=== PATIENT | female | born 1980 | race Caucasian/White ===

== ENCOUNTER 2016-05-15 11:26 | Day surgery (SDC) | payer OTHER ==
[~2016-05-15] VITALS: Ht 154.9 cm; Wt 49.3 kg
[~2016-05-15 11:26] MED LIST: BEN25 PO; CALAMINE TOP; DAPT500V5 IVPB; FLUC100T PO; HYDR-906 PO; IBUP-1542 PO; LACT1CAP56 PO; LANT3I SC; LEVO500T72 PO; MIDO5TAB19 PO; NITR-58 PO; NOVO3I SC; PANT40TA3 PO; SUCR1TAB27 PO; Senna PO; TOPI25TA38 PO; TRAM50TA2 PO
[2016-05-15 12:40] VITALS: Ht 154.9 cm; Wt 49.3 kg
[2016-05-15] MEDS ORDERED: INSULIN (12:49)
[2016-05-15] MEDS ORDERED: OMEPRAZOLE (12:49)
[2016-05-15 13:23] VITALS: BP 127/83; PULSE 103; RESP 18
[2016-05-15] MEDS ORDERED: MIDAZOLAM 1 MG/ML 2 ML INJ ONE ×2 (13:40)
[2016-05-15] MEDS ORDERED: FENTAnyl 50 MCG/ML VIAL ONE (13:41)
[2016-05-15 13:45] VITALS: BP 101/75; PULSE 86
--- NOTE | 2016-05-15 14:14 | GILP ---
DATE OF PROCEDURE: 05/15/2016 NAME OF PROCEDURES: Esophagogastroduodenoscopy and biopsy. SURGEON: Alyssa Navarrete MD PREOPERATIVE DIAGNOSES: 1. Abdominal pain. 2. Chronic heartburn. POSTOPERATIVE DIAGNOSES: 1. Gastroesophageal reflux disease. 2. Gastritis with erosions. 3. Superficial ulcerations in the prepyloric area. 4. Gastric mucosal biopsies were taken for H. pylori test. 5. Duodenum was normal. INDICATION FOR THE PROCEDURE: Ms. Radha Sloan is a 35-year-old female patient who had upper abdo handy pain and chronic heartburn, not responding to therapy. The patient was scheduled for endoscop ic examination for further evaluation. The procedure and possible complications were well explained to the patient. The patient understood and consented to the procedure. DESCRIPTION OF PROCEDURE: Under the influence of fentanyl and Versed, the gastroscope was carefully introduced into the esophagus, and under direct vision, it was advanced to the stomach and through the pylorus into the duodenal bulb and descending duodenum. FINDINGS: ESOPHAGUS: The patient had gastroesophageal reflux disease. STOMACH: She had gastritis with erosions. She also had superficial ulceration in the prepyloric ar ea. Gastric mucosal biopsies were taken for H. pylori test. DUODENUM: Normal. The patient tolerated the procedure very well, and there was no complication from the procedure. At the end of the procedure, she was awake with stable vital signs and she was discharged home to the care of her family. IMPRESSION: Please see postoperative diagnosis. PLAN: 1. Continue omeprazole. 2. Add Zantac 300 mg p.o. at bedtime. 3. Await H. pylori test report. Dictated By: ALYSSA BELLA/DIANA Conf#: [id number] DID#: [id number] CC: IONA RENNER MD;*EndCC*
[2016-05-15 14:15] VITALS: BP 105/76
== END 2016-05-15 15:27 | disposition home or self-care (01) ==
LOC: GIL 11:26
PROVIDERS: ATTEND Internal Medicine Gastroenterology
DX: K29.60 Other gastritis without bleeding (principal); B96.81 Helicobacter pylori [H. pylori] as the cause of diseases classified elsewhere; K21.9 Gastro-esophageal reflux disease without esophagitis; E11.9 Type 2 diabetes mellitus without complications; N18.9 Chronic kidney disease, unspecified
CPT/HCPCS: 43239; 82962; 84703; 87081; J2250; J3010; Z7610

== ENCOUNTER 2016-06-18 21:44 | Emergency (ER) | payer OTHER ==
[~2016-06-18] VITALS: Ht 162.6 cm; Wt 51.5 kg
[~2016-06-18 21:44] MED LIST changes: -BEN25 PO; -CALAMINE TOP; -DAPT500V5 IVPB; -FLUC100T PO; -HYDR-906 PO; -IBUP-1542 PO; +INSULIN; -LACT1CAP56 PO; -LANT3I SC; -LEVO500T72 PO; -MIDO5TAB19 PO; -NITR-58 PO; -NOVO3I SC; +OMEPRAZOLE; -PANT40TA3 PO; -SUCR1TAB27 PO; -Senna PO; -TOPI25TA38 PO; -TRAM50TA2 PO
[2016-06-18 21:47] VITALS: Ht 162.6 cm; Wt 51.5 kg
[2016-06-18] MEDS ORDERED: SOD CHLORIDE 0.9% 500 ML IV STA (22:05)
[2016-06-18] MEDS ORDERED: morphine 4 MG/ML VIAL IV STA (22:05)
--- NOTE | 2016-06-18 22:09 | ERD ---
ER Documentation Chief Complaint Date/Time DATE: 06/18/16 TIME: 22:07 Chief Complaint LLQ abd pain x 6 months, painful urination HPI 35 year female presents to emergency department for complaints of left lower quadrant abdominal pain for 6 months worse today, describes the pain as sharp pain, 6/10 scale, is accompanied with dysuria. Patient already has been referred to a urologist specialist for further evaluation, patient has history of CKD, also has been referred to renal specialist. Patient is diabetic. Patient denies any fever or chills. Patient describes left lower quadrant abdominal pain as sharp pain, 6/10 scale, accompanied with occasional constipation. Patient denies any nausea or vomiting. Patient denies any fever or chills. ROS All systems reviewed and are negative except as per history of present illness. Medications Home Meds Active Scripts Ondansetron (Ondansetron Odt) 4 Mg Tab.rapdis, 4 MG PO Q8 Y for NAUSEA AND/OR VOMITING, #30 TAB Prov:SAPNA PANCHAL NP 06/18/16 Hydrocodone/Acetaminophen ([place] 5-325 Tablet) 1 Each Tablet, 1 TAB PO Q6H Y for SEVERE PAIN LEVEL 7-10, #20 TAB Prov:SAPNA PANCHAL NP 06/18/16 Phenazopyridine Hcl* (Pyridium*) 200 Mg Tab, 200 MG PO TID Y for URINARY PAIN, # 6 TAB Prov:SAPNA PANCHAL NP 06/18/16 Ciprofloxacin Hcl* (Ciprofloxacin Hcl*) 500 Mg Tablet, 500 MG PO BID for 10 Days , TAB Prov:SAPNA PANCHAL NP 06/18/16 Reported Medications [Omeprazole] No Conflict Check 05/15/16 [Insulin] No Conflict Check 05/15/16 Allergies Allergies: Coded Allergies: amoxicillin (Verified Allergy, Severe, THROAT SWELLING, HIVES, 09/10/15) latex (Verified Allergy, Severe, HIVES, 09/10/15) monosodium glutamate (Verified Allergy, Severe, THROAT SWELLING, HIVES, ) Uncoded Allergies: MSG (Allergy, Unknown, THROAT SWELLING, HIVES, 05/31/14) PMhx/Soc History of Surgery: Yes (TIBIA SURGERY) Anesthesia Reaction: No Hx Neurological Disorder: No Hx Respiratory Disorders: No Hx Cardiac Disorders: No Hx Psychiatric Problems: Yes (ANXIETY/DEPRESSION) Hx Miscellaneous Medical Probl: No Hx Alcohol Use: No Hx Substance Use: No Hx Tobacco Use: Yes (1/2 PACK PER DAY) Smoking Status: Unknown if ever smoked FmHx Family History: No coronary disease, No diabetes, No other Physical Exam Vitals Vital Signs Date Time Temp Pulse Resp B/P Pulse Ox O2 Delivery O2 Flow Rate FiO2 06/19/16 01:00 98.3 97 17 123/82 99 Room Air 06/18/16 21:47 98.3 105 20 141/84 98 Physical Exam GENERAL: The patient is well developed and appropriate for usual state of health, in no apparent distress. CHEST: Clear to auscultation bilaterally. There are no rales, wheezes or rhonchi. HEART: Regular rate and rhythm. No murmurs, clicks, rubs or gallops. No S3 or S4. ABDOMEN: Soft, nontender and nondistended. Good bowel sounds. No rebound or guarding. No gross peritonitis. No gross organomegaly or masses. No Medina sign or McBurney point tenderness. BACK: No midline or flank tenderness. EXTREMITIES: Equal pulses bilaterally. There is no peripheral clubbing, cyanosis or edema. No focal swelling or erythema. Full range of motion. Grossly neurovascularly intact. NEURO: Alert and oriented. Cranial nerves 2-12 intact. Motor strength in all 4 extremities with 5/5 strength. Sensation grossly intact. Normal speech and gait. SKIN: There is no apparent rash or petechia. The skin is warm and dry. HEMATOLOGIC AND LYMPHATIC: There is no evidence of excessive bruising or lymphedema. No gross cervical, axillary, or inguinal lymphadenopathy. Result Diagram: 06/18/16221906/18/162219 Results 24 hrs Laboratory Tests Test 06/18/16 22:20 White Blood Count 11.610^3/ul Red Blood Count 4.2810^6/ul Hemoglobin 11.8g/dl Hematocrit 37.0% Mean Corpuscular Volume 86.4fl Mean Corpuscular Hemoglobin 27.6pg Mean Corpuscular Hemoglobin Concent 31.9g/dl Red Cell Distribution Width 13.1% Platelet Count 37164^3/UL Mean Platelet Volume 10.6fl Neutrophils % 55.8% Lymphocytes % 37.0% Monocytes % 4.7% Eosinophils % 2.0% Basophils % 0.3% Nucleated Red Blood Cells % 0.0/100WBC Neutrophils # 6.510^3/ul Lymphocytes # 4.310^3/ul Monocytes # 0.510^3/ul Eosinophils # 0.210^3/ul Basophils # 0.010^3/ul Nucleated Red Blood Cells # 0.010^3/ul Urine Color LT. YELLOW Urine Clarity CLEAR Urine pH 6.0 Urine Specific [place] 1.015 Urine Ketones NEGATIVE Urine Nitrite NEGATIVE Urine Bilirubin NEGATIVE Urine Urobilinogen 0.2 E.U./dL Urine Leukocyte Esterase NEGATIVE Urine Microscopic RBC 5-10/HPF Urine Microscopic WBC 5-10/HPF Urine Squamous Epithelial Cells FEW Urine Bacteria MANY Urine Hemoglobin 2+ Urine Glucose NEGATIVE% Urine Total Protein 2+ Sodium Level 140mmol/L Potassium Level 4.6mmol/L Chloride Level 102mmol/L Carbon Dioxide Level 27mmol/L Anion Gap 16 Blood Urea Nitrogen 17mg/dl Creatinine 1.07mg/dl Glucose Level 176mg/dl Calcium Level 8.8mg/dl Total Bilirubin 0.2mg/dl Direct Bilirubin 0.00mg/dl Indirect Bilirubin 0.2mg/dl Aspartate Amino Transf (AST/SGOT) 25IU/L Alanine Aminotransferase (ALT/SGPT) 30IU/L Alkaline Phosphatase 97IU/L Total Protein 7.4g/dl Albumin 3.7g/dl Globulin 3.70g/dl Albumin/Globulin Ratio 1.00 Lipase 256U/L Current Medications Medications (Trade) Dose Ordered Sig/Lindsay Route PRN Reason Start Time Stop Time Status Last Admin Dose Admin Sodium Chloride (NS) 500 ml @ 500 mls/hr Q1H STAT IV 06/18/16 22:05 06/18/16 23:04 DC 06/18/16 22:19 Morphine Sulfate (morphine) 4 mg ONCE STAT IV 06/18/16 22:05 06/18/16 22:07 DC 06/18/16 22:19 Patient was given medication for pain here in emergency department, after treatment, patient verbalized feeling much better. Patient's pain is improved.Patient was given Zofran here in the emergency department. After treatment, patient was able to tolerate po fluids here in the emergency department without any vomiting. There is no signs and symptoms of dehydration. PROCEDURE: CT Abdomen and Pelvis without contrast CLINICAL INDICATION: Abdominal pain TECHNIQUE: Transaxial images were obtained through the abdomen and pelvis on a multi-slice scanner without the intravenous contrast administration. A small amount of oral contrast had previously been given. Sagittal and coronal re- formations were subsequently reconstructed. One or more of the following dose reduction techniques were used: - Automated exposure control. - Adjustment of the mA and/or kV according to patient size. - Use of iterative reconstruction technique. Radiation dose: CTDIvol = 7.68 mGy; DLP = 404.34 mGy-cm. COMPARISON: 11/20/2015 FINDINGS: Lung bases: The visualized lung bases appear unremarkable. Liver: Normal in size and in attenuation. There is no focal lesion. Gallbladder: The wall is not thickened. No radiopaque stones are identified. Bile ducts: The intra and extrahepatic bile ducts are normal in caliber. Pancreas: Appears normal with no mass or inflammation evident. Spleen: Normal in size with no focal lesion. Adrenals: Normal with no mass identified. Kidneys, ureters and bladder: 8-0.5 cm cyst is seen within the lateral mid pole of the left kidney. The right kidney is smaller than the left and slightly lobulated in contour compatible with cortical scarring. The ureters are normal in caliber and no ureteroliths are identified. Air is seen within the bladder lumen. Reproductive organs: The uterus deviates slightly to the right of midline. No adnexal mass is evident. Phleboliths are seen in the pelvis. Stomach and bowel: The stomach is moderately distended with food debris. Substantial stool is seen within the colon particularly on the right. There is no evidence of bowel obstruction or inflammation. Appendix: Portions of an unremarkable appearing vermiform appendix are tentatively identified. Peritoneum: No free intraperitoneal fluid or air is identified. Aorta: Normal in caliber with no aneurysmal dilatation. IVC: Unremarkable. Lymph nodes: Small shoddy retroperitoneal nodes are evident. Osseous structures: The osseous elements appear intact. IMPRESSION: 1. Since the previous CT of 11/20/2015, the stomach remains distended but is now distended with food debris rather than fluid. Substantial stool seen in the right colon. There is no evidence of bowel obstruction or inflammation and portion 7 unremarkable appearing vermiform appendix are tentatively identified. 2. There is again a 2.5 cm cyst at the lateral mid pole left kidney, the right kidney remains is slightly smaller and lobulated in contour compatible with scarring. There is no evidence of urinary outflow obstruction or ureterolithiasis. There is no a air within the bladder lumen. This likely is iatrogenic. If there was no procedure performed consideration should be given to the possibility of an enterovesical fistula. 3. Otherwise, stable and unremarkable noncontrast enhanced CT scan of the abdomen and pelvis. Physician Yelena Date Time Electronically viewed and signed by Physician Yelena on 06/18/2016 23:38 RH/ CC: SAPNA PANCHAL [employer] WORKER Procedures/MDM Medical Decision Making: Patient's symptoms is likely consistent with urinary tract infection. No symptoms of pyelonephritis at this time. Low suspicion for any kidney stones, septic stone. I discussed this case with my attending physician, Dr. Cassidy, outpatient management is appropriate at this time, outpatient follow-up is appropriate at this time. There is low suspicion for abdominal emergencies at this time. Patients abdominal exam is normal at this time. Patients radiology exam does not show any abdominal emergencies at this time. There is low suspicion for appendicitis, cholecystitis, abdominal aortic aneurysms or peritonitis at this time. There is low suspicion for sepsis. Patient appears well and is hemodynamically stable. Disposition: Home. Condition: Stable Prescription ciprofloxacin, Pyridium, Percocet, Zofran Instructions: Patient is advised to take medications as prescribed. Patient is advised to rest, increase fluid intake and do brat diet for next 1-2 days and progress as tolerated. Patient is advised that if symptoms are worse, severe abdominal pain, uncontrolled vomiting, high fever, severe flank pain, worst signs and symptoms, to return to the emergency department immediately. Otherwise, patient can follow up with primary care doctor in 5-7 days. Departure Diagnosis: Primary Impression: UTI (urinary tract infection) Urinary tract infection type: acute cystitis Hematuria presence: without hematuria Qualified Code: N30.00 - Acute cystitis without hematuria Additional Impression: Abdominal pain Abdominal location: left lower quadrant Qualified Code: R10.32 - Left lower quadrant pain Condition: Stable Patient Instructions: Abdominal Pain, Understanding Urinary Tract Infections ( UTIs) Additional Instructions: Patient is advised to take medications as prescribed. Patient is advised to rest, increase fluid intake and do brat diet for next 1-2 days and progress as tolerated. Patient is advised that if symptoms are worse, severe abdominal pain , uncontrolled vomiting, high fever, severe flank pain, worst signs and symptoms , to return to the emergency department immediately. Otherwise, patient can follow up with primary care doctor in 5-7 days. SAPNA PANCHAL NP June 18, 2016 22:09
[2016-06-18 22:37] LABS: ADD SCAN DIFF NO
[2016-06-18 22:39] LABS: BASOPHILS % 0.3 % (0.0-2.0); EOSINOPHILS # 0.2 10^3/ul (0.0-0.5); HEMOGLOBIN 11.8 g/dl (12.0-16.0); LYMPHOCYTES # 4.3 10^3/ul (0.8-2.9); MEAN CORPUSCULAR HEMOGLOBIN 27.6 pg (29.0-33.0); MEAN CORPUSCULAR HGB CONC 31.9 g/dl (32.0-37.0); MEAN CORPUSCULAR VOLUME 86.4 fl (82.0-101.0); MEAN PLATELET VOLUME 10.6 fl (7.4-10.4); MONOCYTE # 0.5 10^3/ul (0.3-0.9); MONOCYTES % 4.7 % (0.0-11.0); NEUTROPHIL # 6.5 10^3/ul (1.6-7.5); NEUTROPHILS % 55.8 % (39.0-77.0); PLATELET COUNT 326 10^3/UL (140-415); RED BLOOD COUNT 4.28 10^6/ul (4.20-5.40); RED CELL DISTRIBUTION WIDTH 13.1 % (11.5-14.5); WHITE BLOOD COUNT 11.6 10^3/ul (4.8-10.8)
[2016-06-18 22:42] LABS: ADD UMIC YES; URINE BILIRUBIN (Dip) NEGATIVE (NEGATIVE); URINE BLOOD (Dip) 2+ (NEGATIVE); URINE COLOR LT. YELLOW (YELLOW); URINE GLUCOSE (Dip) NEGATIVE (NEGATIVE); URINE KETONES (Dip) NEGATIVE (NEGATIVE); URINE LEUKOCYTE ESTERASE (Dip) NEGATIVE (NEGATIVE); URINE NITRITE (Dip) NEGATIVE (NEGATIVE); URINE TOTAL PROTEIN (Dip) 2+ (NEGATIVE); URINE UROBILINOGEN (Dip) 0.2 E.U./dL (0.1-1.0)
[2016-06-18 22:48] LABS: ALBUMIN 3.7 g/dl (3.3-4.9); POTASSIUM 4.6 mmol/L (3.5-5.1)
[2016-06-18 22:50] LABS: BILIRUBIN,INDIRECT 0.2 mg/dl (0-1.1); BILIRUBIN,TOTAL 0.2 mg/dl (0.2-1.3); CREATININE 1.07 mg/dl (0.44-1.00)
[2016-06-18 22:51] LABS: CALCIUM 8.8 mg/dl (8.4-10.2); TOTAL PROTEIN 7.4 g/dl (6.1-8.1)
[2016-06-18 22:56] LABS: BACTERIA,URINE MANY; SQUAMOUS EPITHELIAL CELL,UR FEW
--- NOTE | 2016-06-18 23:39 | RADRPT ---
PROCEDURE: CT Abdomen and Pelvis without contrast CLINICAL INDICATION: Abdominal pain TECHNIQUE: Transaxial images were obtained through the abdomen and pelvis on a multi-slice scanner without the intravenous contrast administration. A small amount of oral contrast had previously bee n given. Sagittal and coronal re-formations were subsequently reconstructed. One or more of the following dose reduction techniques were used: - Automated exposure control. - Adjustment of the mA and/or kV according to patient size. - Use of iterative reconstruction technique. Radiation dose: CTDIvol = 7.68 mGy; DLP = 404.34 mGy-cm. COMPARISON: 11/20/2015 FINDINGS: Lung bases: The visualized lung bases appear unremarkable. Liver: Normal in size and in attenuation. There is no focal lesion. Gallbladder: The wall is not thickened. No radiopaque stones are identified. Bile ducts: The intra and extrahepatic bile ducts are normal in caliber. Pancreas: Appears normal with no mass or inflammation evident. Spleen: Normal in size with no focal lesion. Adrenals: Normal with no mass identified. Kidneys, ureters and bladder: 8-0.5 cm cyst is seen within the lateral mid pole of the left kidney. The right kidney is smaller than the left and slightly lobulated in contour compatible with cortica l scarring. The ureters are normal in caliber and no ureteroliths are identified. Air is seen within the bladder lumen. Reproductive organs: The uterus deviates slightly to the right of midline. No adnexal mass is evide nt. Phleboliths are seen in the pelvis. Stomach and bowel: The stomach is moderately distended with food debris. Substantial stool is seen within the colon particularly on the right. There is no evidence of bowel obstruction or inflammati on. Appendix: Portions of an unremarkable appearing vermiform appendix are tentatively identified. Peritoneum: No free intraperitoneal fluid or air is identified. Aorta: Normal in caliber with no aneurysmal dilatation. IVC: Unremarkable. Lymph nodes: Small shoddy retroperitoneal nodes are evident. Osseous structures: The osseous elements appear intact. IMPRESSION: 1. Since the previous CT of 11/20/2015, the stomach remains distended but is now distended with koko d debris rather than fluid. Substantial stool seen in the right colon. There is no evidence of bow el obstruction or inflammation and portion 7 unremarkable appearing vermiform appendix are tentative ly identified. 2. There is again a 2.5 cm cyst at the lateral mid pole left kidney, the right kidney remains is sl ightly smaller and lobulated in contour compatible with scarring. There is no evidence of urinary o utflow obstruction or ureterolithiasis. There is no a air within the bladder lumen. This likely is iatrogenic. If there was no procedure performed consideration should be given to the possibility o f an enterovesical fistula. 3. Otherwise, stable and unremarkable noncontrast enhanced CT scan of the abdomen and pelvis. Physician Yelena Date Time Electronically viewed and signed by Physician Yelena on 06/18/2016 23:38 RH/
[2016-06-18] MEDS ORDERED: HYDR-906 PO (23:59)
[2016-06-18] MEDS ORDERED: ONDA4TAB14 PO (23:59)
[2016-06-18] MEDS ORDERED: PHEN-538 PO (23:59)
[2016-06-18] MEDS ORDERED: CIPR500T4 PO (23:59)
[2016-06-19 01:00] VITALS: BP 123/82; PULSE 97; RESP 17; TEMP 98.3
== END 2016-06-19 01:00 | disposition home or self-care (01) ==
LOC: FTE 21:44
DX: N30.00 Acute cystitis without hematuria (principal); F17.210 Nicotine dependence, cigarettes, uncomplicated; E11.22 Type 2 diabetes mellitus with diabetic chronic kidney disease; N18.9 Chronic kidney disease, unspecified; Z91.040 Latex allergy status
CPT/HCPCS: 36415; 74176; 80053; 81001; 83690; 85025; 96361; 96374; J2270; J7040; Z7502; 81003

== ENCOUNTER 2016-08-28 12:19 | Emergency (ER) | payer OTHER ==
[~2016-08-28] VITALS: Wt 49.0 kg
[~2016-08-28 12:19] MED LIST changes: +CIPR500T4 PO; +HYDR-906 PO; +ONDA4TAB14 PO; +PHEN-538 PO
[2016-08-28] MEDS ORDERED: LIDOCAINE 1% (MPF) 5 ML VIAL SC ONE (13:00)
--- NOTE | 2016-08-28 13:09 | ERD ---
ER Documentation Chief Complaint Date/Time DATE: 08/28/16 TIME: 13:05 Chief Complaint PT SENT HERE FOR PICC LINE INSERTION ONLY. NO LAB WORK .NEEDS ABX HPI 35-year-old male with a history of a urinary tract infection currently being treated by urologist Dr. Callejas, states that she is here for a PICC line. Patient's comes in stating that she was not able to get an IV line by the home health nurse today and the office has been notified that IV access was not able to be achieved. She was supposed to receive Invanz 1 g daily for 14 days for urinary tract infection. Today was supposed to be her first first dose but she did not receive antibiotics because they were not able to get a line. Patient states that she did not want the IV to be placed in the right upper extremity because she states that she has to drive stick. She does not have any fevers or chills. No nausea, vomiting or abdominal pain. She states that she is allergic to amoxicillin, has had throat swelling and rash with this. ROS All systems reviewed and are negative except as per history of present illness. Medications Home Meds Active Scripts Nitrofurantoin Monohyd Macrocr* (Macrobid*) 100 Mg Capsr, 100 MG PO BID for 14 Days, CAP Prov:KASSIDY FIERRO PA-C 08/28/16 Ondansetron (Ondansetron Odt) 4 Mg Tab.rapdis, 4 MG PO Q8 Y for NAUSEA AND/OR VOMITING, #30 TAB Prov:SAPNA PANCHAL NP 06/18/16 Hydrocodone/Acetaminophen ([place] 5-325 Tablet) 1 Each Tablet, 1 TAB PO Q6H Y for SEVERE PAIN LEVEL 7-10, #20 TAB Prov:SAPNA PANCHAL NP 06/18/16 Phenazopyridine Hcl* (Pyridium*) 200 Mg Tab, 200 MG PO TID Y for URINARY PAIN, # 6 TAB Prov:SAPNA PANCHAL NP 06/18/16 Ciprofloxacin Hcl* (Ciprofloxacin Hcl*) 500 Mg Tablet, 500 MG PO BID for 10 Days , TAB Prov:SAPNA PANCHAL NP 06/18/16 Reported Medications [Omeprazole] No Conflict Check 05/15/16 [Insulin] No Conflict Check 4/5/17 Allergies Allergies: Coded Allergies: amoxicillin (Verified Allergy, Severe, THROAT SWELLING, HIVES, 08/28/16) latex (Verified Allergy, Severe, HIVES, 08/28/16) monosodium glutamate (Verified Allergy, Severe, THROAT SWELLING, HIVES, ) Uncoded Allergies: MSG (Allergy, Unknown, THROAT SWELLING, HIVES, 05/31/14) PMhx/Soc History of Surgery: Yes (TIBIA SURGERY) Anesthesia Reaction: No Hx Neurological Disorder: No Hx Respiratory Disorders: No Hx Cardiac Disorders: No Hx Psychiatric Problems: Yes (ANXIETY/DEPRESSION) Hx Miscellaneous Medical Probl: No Hx Alcohol Use: No Hx Substance Use: No Hx Tobacco Use: Yes (1/2 PACK PER DAY) Smoking Status: Current every day smoker Physical Exam Vitals Vital Signs Date Time Temp Pulse Resp B/P Pulse Ox O2 Delivery O2 Flow Rate FiO2 08/28/16 12:22 98.8 100 21 131/80 99 Physical Exam General: Well-developed, well-nourished. The patient appears in no acute distress. HEENT: Head is normocephalic, atraumatic. No scleral icterus. Neck: Supple. Nontender. Lungs: Clear to auscultation. Normal air movement. Heart: Regular rate and rhythm. S1 and S2 are normal. No murmurs, gallops, or rubs. Abdomen: Soft, nontender, nondistended. Bowel sounds are normoactive. Extremities: No clubbing or cyanosis. Normal pulses. Moving extremities x 4. No weakness. Neurologic: Alert and oriented 3. No focal deficits. Skin: Normal turgor. No rash or lesions. Results 24 hrs Laboratory Tests Test 08/28/16 13:09 Urine Color YELLOW Urine Clarity SLIGHTLY CLOUDY Urine pH 5.0 Urine Specific [place] 1.018 Urine Ketones NEGATIVEmg/dL Urine Nitrite NEGATIVEmg/dL Urine Bilirubin NEGATIVEmg/dL Urine Urobilinogen NEGATIVEmg/dL Urine Leukocyte Esterase TRACELeu/ul Urine Microscopic RBC 43/HPF Urine Microscopic WBC 23/HPF Urine Squamous Epithelial Cells FEW/HPF Urine Bacteria MODERATE/HPF Urine Hemoglobin 2+mg/dL Urine Glucose 3+mg/dL Urine Total Protein 2+mg/dl Current Medications Medications (Trade) Dose Ordered Sig/Lindsay Route PRN Reason Start Time Stop Time Status Last Admin Dose Admin Lidocaine (Xylocaine 1% (Mpf)) 5 ml ONCE ONCE SC 08/28/16 13:00 08/28/16 13:01 DC Nitrofurantoin Macrocrystals (Macrobid) 100 mg ONCE ONCE PO 08/28/16 14:30 08/28/16 14:31 DC Procedures/MDM ED COURSE: I got in touch with the urologist's office,of Dr Callejas. There is an order for Ivanz by the urologist, but due to her allergy I have asked them to change the antibiotics if necessary. They returned my call and advised that the Doctor has reviewed the records and states she may be discharged with po antibiotics only, macrobid for 14 days. Medical decision making: This 35-year-old female with history of urinary tract infection has presented to the ER, IV access was not able to be achieved with the home health nurse, patient had decided to come to the ER for a picc line, it is unclear whether or not the patient was advised to come in to the ER for this procedure for antibiotic therapy. The office was not aware that she was coming in to [facility]. They have notified me that she may be discharged with macrobid for her urinary tract infection. She does not have any febrile illness, patient has not been on any antibiotic treatment currently and may be discharged and stable for outpatient management. Departure Diagnosis: Primary Impression: UTI (urinary tract infection) Condition: KASSIDY Ballard PA-C Aug 28, 2016 13:09
[2016-08-28 13:38] LABS: ADD UMIC YES; UR ASCORBIC ACID NEGATIVE (NEGATIVE); UR BACTERIA MODERATE /HPF (NONE SEEN); UR BILIRUBIN (Dip) NEGATIVE (NEGATIVE); UR BLOOD (Dip) 2+ mg/dL (NEGATIVE); UR CLARITY SLIGHTLY CLOUDY (CLEAR); UR COLOR YELLOW (YELLOW); UR GLUCOSE (Dip) 3+ mg/dL (NEGATIVE); UR KETONES (Dip) NEGATIVE (NEGATIVE); UR LEUKOCYTE ESTERASE (Dip) TRACE Leu/ul (NEGATIVE); UR NITRITE (Dip) NEGATIVE (NEGATIVE); UR RBC 43 /HPF (0-5); UR SPECIFIC GRAVITY (Dip) 1.018 (1.003-1.030); UR SQUAMOUS EPITHELIAL CELL FEW /HPF (FEW); UR TOTAL PROTEIN (Dip) 2+ mg/dl (NEGATIVE); UR UROBILINOGEN (Dip) NEGATIVE (NEGATIVE)
[2016-08-28] MEDS ORDERED: NITROFURANTOIN (SR) 100 MG CAP PO ONE (14:30)
[2016-08-28] MEDS ORDERED: NITR-58 PO (14:31)
== END 2016-08-28 14:39 | disposition home or self-care (01) ==
LOC: FTE 12:19
DX: N39.0 Urinary tract infection, site not specified (principal); F17.210 Nicotine dependence, cigarettes, uncomplicated; E11.9 Type 2 diabetes mellitus without complications; Z79.4 Long term (current) use of insulin; Z91.040 Latex allergy status
CPT/HCPCS: 81001; 87086; Z7610; 99283

== ENCOUNTER 2017-02-22 14:47 | Inpatient (IN) | END 2017-03-12 16:20 | disposition home or self-care (01) | DRG 854 ==

== ENCOUNTER 2017-07-01 02:42 | Inpatient (IN) | END 2017-07-04 13:35 | disposition home or self-care (01) | DRG 683 ==